=== PATIENT | female | born 1990 | race Hispanic/Latino ===

== ENCOUNTER 2017-05-01 16:37 | Emergency (ER) | payer MEDICAID ==
[2017-05-01 18:34] LABS: Hemoglobin 13.7 gm/dl (10.1-14.3); Mean Corpuscular HGB Conc 32 % (30-34); Mean Corpuscular Hemoglobin 29 pg (28-32); Mean Corpuscular Volume 90 fl (79-97); Platelet Count 286 K/mm3 (140-440); Red Blood Count 4.78 M/mm3 (3.65-5.03); Red Cell Distribution Width 15.3 % (13.2-15.2); White Blood Count 15.2 K/mm3 (4.5-11.0)
[2017-05-01 19:04] LABS: Anion Gap 17 mmol/L; BUN/Creatinine Ratio 14; Blood Urea Nitrogen 10 mg/dL (7-17); Calcium 9.3 mg/dL (8.4-10.2); Carbon Dioxide 24 mmol/L (22-30); Chloride 101.3 mmol/L (98-107); Glucose 97 mg/dL (65-100); Potassium 4.3 mmol/L (3.6-5.0); Sodium 138 mmol/L (137-145)
[2017-05-01 19:21] LABS: Bacteria,Urine 2+ /HPF (Negative); Bilirubin,Urine NEG (Negative); Blood,Urine MOD (Negative); Ketones,Urine NEG (Negative); Leukocyte Esterase,Urine MOD (Negative); Mucus,Urine FEW /HPF; Nitrite,Urine NEG (Negative); Protein,Urine <15 mg/dL mg/dL (Negative); Urobilinogen,Urine < 2.0 mg/dL (<2.0)
[2017-05-02 01:32] VITALS: BP 119/61
[2017-05-02] MEDS ORDERED: ROCEPHIN IM ONE (04:17)
[2017-05-02] MEDS ORDERED: XYLOCAINE 1% MPF 5 mL INFILTRATI ONE (04:17)
--- NOTE | 2017-05-02 04:20 | Emergency Department Report ---
ED HPI - General Chief complaint: Vaginal Bleeding Stated complaint: ABDOMINAL PAIN Time Seen by Provider: 05/02/17 03:40 Source: patient Mode of arrival: Ambulatory Limitations: No Limitations - History of Present Illness Initial comments: 26 yo female who comes in today due to vaginal spotting times one day. She admits this is her fourth , and she is approximately 6 weeks . On yesterday she noticed that she had four episodes of dime-sized vaginal spotting. She states that it was bright red. She denies nausea, vomiting, fever, chills, or back pain. MD Complaint: other (vaginal spotting ) -: days(s) (yesterday ) Radiation: none Severity: mild Improves with: urination Worsens with: none Associated symptoms: denies other symptoms Vaginal bleeding: light (spotting, see hpi ) :: Yes Number of weeks : 6 OB History - Current : no complications OB History - Previous Pregnancies: no complications - Related Data : 4 Para: 3 Ab: 0 Home Medications Medication Instructions Recorded Confirmed Last Taken levETIRAcetam [Keppra] 1,000 mg PO BID 10/13/14 10/27/15 10/27/15 Metoprolol [Lopressor TAB] 50 mg PO BID 10/27/15 10/27/15 10/27/15 Sertraline HCl [Zoloft] 100 mg PO QDAY 10/27/15 10/27/15 10/27/15 Previous Rx's Medication Instructions Recorded Last Taken Type Gabapentin [Neurontin] 300 mg PO BID #60 cap 10/27/15 Unknown Rx Ibuprofen [Motrin] 800 mg PO Q8HR PRN #30 tablet 10/27/15 Unknown Rx HYDROcodone/APAP 7.5-325 [[place] 1 each PO Q6HR PRN #20 tablet 12/01/15 Unknown Rx 7.5-325 mg TAB] Ondansetron [Zofran Odt] 4 mg PO Q8HR PRN #20 tab.rapdis 12/01/15 Unknown Rx Cephalexin 500 mg PO BID #20 capsule 05/02/17 Unknown Rx Allergies Allergy/AdvReac Type Severity Reaction Status Date / Time aspirin Allergy Severe liver Verified 05/20/14 14:57 swells iodine Allergy Swelling Verified 10/27/15 15:20 ED Review of Systems ROS: Stated complaint: ABDOMINAL PAIN Other details as noted in HPI Constitutional: denies: chills, fever Eyes: denies: eye pain, eye discharge, vision change ENT: denies: ear pain, throat pain Respiratory: denies: cough, shortness of breath, wheezing Cardiovascular: denies: chest pain, palpitations Endocrine: no symptoms reported Gastrointestinal: denies: abdominal pain, nausea, diarrhea Genitourinary: as per HPI Musculoskeletal: denies: back pain, joint swelling, arthralgia Skin: denies: rash, lesions Neurological: denies: headache, weakness, paresthesias Psychiatric: denies: anxiety, depression Hematological/Lymphatic: denies: easy bleeding, easy bruising ED Past Medical Hx - Past Medical History Previous Medical History?: Yes Hx Hypertension: No Hx Diabetes: No Hx Deep Vein Thrombosis: No Hx Renal Disease: No Hx Sickle Cell Disease: No Hx Seizures: Yes (last seizure 06/06/14) Hx Asthma: No Hx HIV: No 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 heart murmur. abnormal EKG. elevated heart rate - Social History Smoking Status: Unknown if ever smoked Substance Use Type: None - Medications Home Medications: Home Medications Medication Instructions Recorded Confirmed Last Taken Type levETIRAcetam [Keppra] 1,000 mg PO BID 10/13/14 10/27/15 10/27/15 History Gabapentin [Neurontin] 300 mg PO BID #60 cap 10/27/15 Unknown Rx Ibuprofen [Motrin] 800 mg PO Q8HR PRN #30 tablet 10/27/15 Unknown Rx Metoprolol [Lopressor TAB] 50 mg PO BID 10/27/15 10/27/15 10/27/15 History Sertraline HCl [Zoloft] 100 mg PO QDAY 10/27/15 10/27/15 10/27/15 History HYDROcodone/APAP 7.5-325 [[place] 1 each PO Q6HR PRN #20 tablet 12/01/15 Unknown Rx 7.5-325 mg TAB] Ondansetron [Zofran Odt] 4 mg PO Q8HR PRN #20 tab.rapdis 12/01/15 Unknown Rx Cephalexin 500 mg PO BID #20 capsule 05/02/17 Unknown Rx ED Physical Exam - General Limitations: No Limitations General appearance: alert, in no apparent distress - Head Head exam: Present: atraumatic, normocephalic - Eye Eye exam: Present: normal appearance - Respiratory Respiratory exam: Present: normal lung sounds bilaterally. Absent: respiratory distress - Cardiovascular Cardiovascular Exam: Present: regular rate, normal rhythm. Absent: systolic murmur, diastolic murmur, rubs, gallop - GI/Abdominal GI/Abdominal exam: Present: soft, normal bowel sounds - Rectal Rectal exam: Present: deferred - Back Exam Back exam: Present: normal inspection - Neurological Exam Neurological exam: Present: oriented X3 - Psychiatric Psychiatric exam: Present: normal affect, normal mood - Skin Skin exam: Present: warm, dry, intact, normal color. Absent: rash ED Course Vital Signs 05/01/17 05/02/17 18:17 01:31 Temperature 97 F L 98.2 F Pulse Rate 73 72 Respiratory 18 18 Rate Blood Pressure 106/71 119/61 O2 Sat by Pulse 100 99 Oximetry ED Medical Decision Making - Lab Data Result diagrams: 05/01/17 18:26 05/01/17 18:26 Critical care attestation.: If time is entered above; I have spent that time in minutes in the direct care of this critically ill patient, excluding procedure time. ED Disposition Clinical Impression: , Urinary tract infection Disposition: -01 TO HOME OR SELFCARE Is pt being admited?: No Does the pt Need Aspirin: No Condition: Stable Instructions: (ED), Urinary Tract Infection in Women (ED) Additional Instructions: Take medicine as prescribed. 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 Return to the nearest ED for vaginal bleeding, abdominal cramping, fever, chills, etc. Prescriptions: Cephalexin 500 mg PO BID #20 capsule Referrals: PRIMARY CARE, [Primary Care Provider] - 3-5 Days Time of Disposition: 04:27
== END 2017-05-02 05:13 | disposition home or self-care (01) ==
LOC: ED 16:37
DX: O23.41 Unspecified infection of urinary tract in pregnancy, first trimester (principal); Z3A.01 Less than 8 weeks gestation of pregnancy
CPT/HCPCS: 36415; 80048; 81001; 84702; 85027; 96372; 99283; J0696